=== PATIENT | female | born 1965 | race American Indian/Alaskan Native ===

== ENCOUNTER 2018-07-11 08:37 | Outpatient (CLI) | payer OTHER ==
--- NOTE | 2018-07-12 12:36 | Cat Scan Report ---
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 Left abdominal pain. Following IV administration of contrast arterial and venous phase transverse images are obtained. Arterial and venous phases are obtained from the low chest to the ischium. Coronal and sagittal 2-D reformatted images included. Imaging of the lung bases is unremarkable. A tiny cyst is identified in the dome of the right lobe of the liver and a slightly larger cyst in the lower right lobe. The abdominal and retroperitoneal organs are not otherwise remarkable. The unopacified bowel and mesentery is generally unremarkable. The appendix is normal. Reproductive organs are present and unremarkable. The abdominal aorta and its branches are well-opacified and appear generally unremarkable. Delayed images to evaluate venous phase demonstrates patency of both right and left renal veins emptying into the IVC. Impression: No vascular pathology identified.
== END 2018-07-11 08:38 | disposition home or self-care (01) ==
LOC: CT 08:37
PROVIDERS: ATTEND Radiology Diagnostic Radiology
DX: N94.89 Other specified conditions associated with female genital organs and menstrual cycle (principal); R10.9 Unspecified abdominal pain; Z88.0 Allergy status to penicillin; Z88.6 Allergy status to analgesic agent; Z88.5 Allergy status to narcotic agent
CPT/HCPCS: 74174; Q9967

== ENCOUNTER 2018-07-15 06:07 | Day surgery (SDC) | payer OTHER ==
[~2018-07-15 06:07] MED LIST: NACL 0.9% 1000 ML 1,000 ML IV SCH; VANCOMYCIN/NS 1 GM/250 ML 1 GM/250 ML BAG IV NR
[2018-07-15 07:57] LABS: Hemoglobin 14.2 gm/dl (10.1-14.3); Mean Corpuscular HGB Conc 33 % (30-34); Mean Corpuscular Hemoglobin 31 pg (28-32); Mean Corpuscular Volume 95 fl (79-97); Platelet Count 246 K/mm3 (140-440); Red Blood Count 4.53 M/mm3 (3.65-5.03); Red Cell Distribution Width 13.6 % (13.2-15.2)
[2018-07-15 08:00] LABS: BUN/Creatinine Ratio 18; Blood Urea Nitrogen 11 mg/dL (7-17); Calcium 10.1 mg/dL (8.4-10.2); Hemolysis Index 14
--- NOTE | 2018-07-15 08:10 | Short Stay Summary ---
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) Past Surgical History: Other (prior venography) Social history: , lives with family - Allergies and Medications Current Medications: Allergies acetaminophen [From Percocet] Allergy (Unverified 07/11/18 08:41) Itching amoxicillin Allergy (Unverified 07/11/18 08:40) Itching codeine Allergy (Unverified 07/11/18 08:40) Itching oxycodone [From Percocet] Allergy (Unverified 07/11/18 08:41) Itching INSAIDS Allergy (Uncoded 07/11/18 08:39) Bleeding Active Medications Sodium Chloride (Nacl 0.9% 1000 Ml) 1,000 mls @ 42 mls/hr IV DIRECT TOR Vancomycin HCl (Vancomycin/Ns 1 Gm/250 Ml) 1 gm in 250 mls @ 166.667 mls/hr IV PREOP NR; Protocol Stop: 07/15/18 23:59 - Physical exam General appearance: no acute distress Integumentary: no rash, no growths HEENT: Atraumatic Lungs: Normal air movement Breasts: deferred Heart: Regular rate Gastrointestinal: normal Female Genitourinary: deferred Rectal Exam: deferred Extremities: no ischemia, pulses intact Neurological: Normal gait, Normal speech - Brief post op/procedure progress note Date of procedure: 07/15/18 Pre-op diagnosis: compression of vein/pelvic congestion syndrome Post-op diagnosis: same Procedure: Left gonadal vein embolization Anesthesia: local Surgeon: JOSI QUINN Estimated blood loss: none Pathology: none Condition: stable - Disposition Condition at discharge: Good Disposition: DC-01 TO HOME OR SELFCARE Short Stay Discharge Plan Activity: advance as tolerated Weight Bearing Status: Weight Bear as Tolerated Diet: regular Wound: keep clean and dry, per your surgeon's advice Follow up with: CAROL PADILLA MD [Primary Care Provider] - 7 Days
[2018-07-15 08:14] LABS: INR 0.87 (0.87-1.13)
[2018-07-15 08:15] LABS: Partial Thromboplastin Time 39.4 Sec. (24.2-36.6)
[2018-07-15 09:38] LABS: Basophils % (Manual) 0 % (0.0-1.8); Total Cells Counted 100
[2018-07-15 09:39] LABS: Anisocytosis 1+
[2018-07-15] MEDS ORDERED: VERSED ONE (09:46)
[2018-07-15] MEDS ORDERED: HEPARIN/NS 5000 UNIT/500ML(CATH LAB) 1,000 ML IR ONE (09:48)
[2018-07-15] MEDS ORDERED: NACL 0.9% 500 ML 0 ML ONE (09:48)
[2018-07-15] MEDS ORDERED: XYLOCAINE 2% INFILTRATI ONE (09:48)
[2018-07-15] MEDS ORDERED: ZOFRAN ONE (10:02)
[2018-07-15] MEDS: SUBLIMAZE ONE ×2 (10:23→10:42)
[2018-07-15] MEDS: BENADRYL ONE ×2 (10:42→10:46)
[2018-07-15] MEDS ORDERED: TORADOL ONE (10:46)
--- NOTE | 2018-07-15 11:20 | Operative Report ---
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 The patient was brought to the angiographic suite and placed in supine position on the examination table. Initial ultrasound evaluation of her arm demonstrated a patent brachial vein. The patient's left arm was prepped and draped in the usual sterile fashion. 2% lidocaine was used for anesthesia. Under ultrasound guidance, the left brachial vein was cannulated with a 7 cm 18- gauge needle. A 0.035 guidewire was advanced centrally. The needle was removed and a 5 Irish sheath placed. A 5 Irish MPA catheter was then advanced over the guidewire and together the guidewire and catheter advanced into the IVC. The guidewire was exchanged for a 0.035 Glidewire and selective cannulation of the left renal vein performed. The guidewire was advanced into the left gonadal vein for anchoring and the catheter advanced in the left renal vein. Venous angiography demonstrated the origin of the left gonadal vein as well as some extrinsic compression of the left renal vein. The MPA catheter was advanced over the guidewire through the left gonadal vein to the level of the pelvis. Venography was performed in left gonadal vein which demonstrates numerous pelvic collaterals and varicosities with near complete stasis of flow. The left gonadal vein was dilated to 6-7 mm throughout its course. With the catheter at the pelvic brim, the guidewire was removed and an 0.025 microcatheter advanced through the MPA catheter extending just distal to its tip. Elevation of gonadal vein was then performed from proximal to distal including a large side branch. Following embolization with 8 mm x 60 cm coils, there is stasis of flow in the residual left gonadal vein with no contrast extending to the pelvis. At this point, the catheters were removed. The sheath was removed and hemostasis achieved using manual compression. Compression dressing was then applied. The patient tolerated the procedure well. There were no immediate post procedure complications. Conscious sedation was performed under the guidance of radiologic nursing. Continuous cardiopulmonary monitoring was utilized. Impression: 1) Left renal and left gonadal vein angiography demonstrating dilation of the left gonadal vein, numerous pelvic varicosities with near complete stasis of flow in dilation of the left gonadal vein to 7 mm in diameter. Combined with the patient's clinical symptoms of left-sided abdominal pain that is worse when she is sitting or standing for long periods of time, the patient has significant pelvic congestion syndrome. 2) Coil embolization of the left gonadal vein as described.
[2018-07-15] MEDS ORDERED: DEMEROL IV PRN (11:27)
[2018-07-15] MEDS ORDERED: DEMEROL ONE (11:27)
[2018-07-15] MEDS ORDERED: BENADRYL ONE (11:47)
[2018-07-15] MEDS ORDERED: BENADRYL IV ONE (12:00)
[2018-07-15] MEDS ORDERED: ZOFRAN IV ONE (12:01)
[2018-07-15 12:21] VITALS: BP 146/79
== END 2018-07-15 13:45 | disposition home or self-care (01) ==
LOC: CATHLABREC 06:07
PROVIDERS: ATTEND Radiology Diagnostic Radiology
DX: I82.890 Acute embolism and thrombosis of other specified veins (principal); N94.89 Other specified conditions associated with female genital organs and menstrual cycle; I87.1 Compression of vein; I86.8 Varicose veins of other specified sites; E78.00 Pure hypercholesterolemia, unspecified; K21.9 Gastro-esophageal reflux disease without esophagitis; Z79.899 Other long term (current) drug therapy; Z88.6 Allergy status to analgesic agent; Z88.1 Allergy status to other antibiotic agents; Z88.5 Allergy status to narcotic agent; Z98.51 Tubal ligation status; Z98.890 Other specified postprocedural states
CPT/HCPCS: 36012; 36415; 37241; 75831; 80048; 85007; 85025; 85610; 85730; 96374; 96375; 99156; 99157; C1769; J1200; J1644; J1885; J2175; J2250; J2405; J3010; J7030; J7040; Q9967